=== PATIENT | female | born 1950 | race Hispanic/Latino ===

== ENCOUNTER → 2019-11-28 | Outpatient (CLI) | payer MEDICARE ==
--- NOTE | 2019-11-28 13:51 | Diagnostic Imaging Report ---
TECHNIQUE: Magnetic resonance imaging of the LEFT ANKLE was performed WITHOUT injected contrast. COMPARISON: None available. HISTORY: Posterior tibial tendinitis FINDINGS: LIGAMENTS: Medial Complex: Intact Lateral Complex: Intact, including the tibiofibular ligaments. TENDONS: Medial: Posterior tibial and flexor tendons intact. Lateral: Peroneal tendons intact. Anterior: Anterior tibial and extensor tendons intact. Achilles: Achilles tendon intact. BONES: No focal or infiltrative bone marrow replacing abnormality. No acute fracture or osteonecrosis. JOINTS: Cartilage: Scattered degenerative arthrosis of the midfoot and talonavicular joint. Other: Fluid within the joints is within physiologic limits. SOFT TISSUES: Soft tissue ulceration of the lateral plantar heel. IMPRESSION: 1. Soft tissue ulceration of the lateral plantar heel without abscess or osteomyelitis. 2. No acute osseous, ligamentous, or tendinous abnormality. Signed by: Dr. Hever Yuan M.D. on 11/28/2019 1:48 PM
== END ==
LOC: MRI 12:29
PROVIDERS: ATTEND Specialist
DX: M76.822 Posterior tibial tendinitis, left leg (principal)

== ENCOUNTER 2020-02-18 14:51 | Outpatient (RCR) | payer OTHER, MEDICARE ==
[2020-02-18 15:07] LABS: BASOPHILS # (AUTO) 0.1 (0.0-0.1); BASOPHILS % 0.9 % (0.0-1.0); EOSINOPHILS # (AUTO) 0.2 (0.0-0.4); EOSINOPHILS % 2.5 % (0.0-6.0); HEMATOCRIT 40.3 % (34.2-44.1); HEMOGLOBIN 12.5 g/dL (12.0-16.0); LYMPHOCYTES # (AUTO) 2.2 (1.0-3.2); LYMPHOCYTES % 29.9 % (18.0-39.1); MEAN CORPUSCULAR HEMOGLOBIN 30.9 pg (28-32); MEAN CORPUSCULAR VOLUME 99.5 fL (81-99); MONOCYTES # (AUTO) 0.6 (0.2-0.8); MONOCYTES % 7.9 % (4.4-11.3); NEUTROPHILS # (AUTO) 4.4 (2.1-6.9); NEUTROPHILS % 58.3 % (38.7-80.0); PLATELET COUNT 189 x10e3/uL (140-360); RED BLOOD COUNT 4.05 x10e6/uL (3.6-5.1); RED CELL DISTRIBUTION WIDTH 13.8 % (11.7-14.4)
[2020-02-18 15:26] LABS: ALBUMIN 4.3 g/dL (3.5-5.0); ANION GAP 24.3 mmol/L (8-16); CALCIUM 9.5 mg/dL (8.4-10.2); CREATININE, SERUM 6.16 mg/dL (0.57-1.11)
[2020-02-18 15:31] LABS: POTASSIUM 5.3 mmol/L (3.5-5.1)
== END 2020-03-10 ==
LOC: WCC 14:51
PROVIDERS: ATTEND Podiatrist
DX: E11.622 Type 2 diabetes mellitus with other skin ulcer (principal); E11.69 Type 2 diabetes mellitus with other specified complication; E11.65 Type 2 diabetes mellitus with hyperglycemia; L98.492 Non-pressure chronic ulcer of skin of other sites with fat layer exposed; G90.09 Other idiopathic peripheral autonomic neuropathy; N18.6 End stage renal disease; I10 Essential (primary) hypertension; E78.5 Hyperlipidemia, unspecified
CPT/HCPCS: 36415; 80053; 83036; 84134; 85025; 85651; 86140

== ENCOUNTER 2020-04-07 14:34 | Outpatient (RCR) | payer MEDICARE | END 2020-04-10 | LOC: WCC 14:34 | PROVIDERS: ATTEND Podiatrist | DX: E11.622 Type 2 diabetes mellitus with other skin ulcer (principal); E11.69 Type 2 diabetes mellitus with other specified complication; E11.65 Type 2 diabetes mellitus with hyperglycemia; L98.492 Non-pressure chronic ulcer of skin of other sites with fat layer exposed; G90.09 Other idiopathic peripheral autonomic neuropathy; N18.6 End stage renal disease; I10 Essential (primary) hypertension; E78.5 Hyperlipidemia, unspecified ==

== ENCOUNTER 2020-05-26 13:24 | Outpatient (RCR) | payer OTHER ==
[2020-05-26] MEDS ORDERED: MINERAL OIL/PETROLAT/GLYCERI 2OZ CRM ONE (13:45)
== END 2020-06-10 ==
LOC: WCC 13:24
PROVIDERS: ATTEND Podiatrist
DX: E11.622 Type 2 diabetes mellitus with other skin ulcer (principal); E11.69 Type 2 diabetes mellitus with other specified complication; E11.65 Type 2 diabetes mellitus with hyperglycemia; L98.492 Non-pressure chronic ulcer of skin of other sites with fat layer exposed; G90.09 Other idiopathic peripheral autonomic neuropathy; N18.6 End stage renal disease; I10 Essential (primary) hypertension; E78.5 Hyperlipidemia, unspecified
CPT/HCPCS: 36415; 82948